=== PATIENT | female | born 1975 | race Caucasian/White ===

== ENCOUNTER 2024-04-22 00:16 | Emergency (ER) | payer BC ==
[~2024-04-22] VITALS: Ht 160 cm; Wt 83.0 kg
[2024-04-22] MEDS ORDERED: DiphenhydrAMINE HCL 50 MG/ML SDV IV ONE (00:35)
[2024-04-22] MEDS ORDERED: DEXAMETHASONE SOD. PHOSPHATE 10 MG/ML VIAL IV ONE (00:35)
[2024-04-22] MEDS ORDERED: ALBUTEROL SULFATE 2.5 MG VIAL NEB ONE (00:35)
[2024-04-22] MEDS ORDERED: SODIUM CHLORIDE 0.45% 1,000 ML IV ONE (00:35)
[2024-04-22] MEDS ORDERED: FAMOTIDINE 10MG/ML 2ML SDV IV ONE (00:35)
[2024-04-22] MEDS ORDERED: SODIUM CHLORIDE 0.9% 1,000 ML IV STA (00:38)
[2024-04-22] MEDS ORDERED: DEXAMETHASON6 MG PO (02:13)
[2024-04-22] MEDS ORDERED: EPIPEN 2-P0.3 MG/0.3 IM (02:13)
[2024-04-22 02:25] VITALS: BP 148/89
== END 2024-04-22 02:25 | disposition home or self-care (01) | DRG 916 ==
LOC: ED 00:16
DX: T78.2XXA Anaphylactic shock, unspecified, initial encounter (principal); I25.10 Atherosclerotic heart disease of native coronary artery without angina pectoris; E78.5 Hyperlipidemia, unspecified